=== PATIENT | female | born 1980 | race Two or more races ===

== ENCOUNTER → 2019-08-23 | Outpatient (CLI) | payer OTHER | END | disposition home or self-care (01) | LOC: PRENATAL 11:00 | DX: O99.89 Other specified diseases and conditions complicating pregnancy, childbirth and the puerperium (principal); O09.522 Supervision of elderly multigravida, second trimester; O34.32 Maternal care for cervical incompetence, second trimester; O26.842 Uterine size-date discrepancy, second trimester; O09.92 Supervision of high risk pregnancy, unspecified, second trimester; O09.212 Supervision of pregnancy with history of pre-term labor, second trimester ==

== ENCOUNTER → 2019-10-02 | Outpatient (CLI) | payer OTHER | END | disposition home or self-care (01) | LOC: PRENATAL 09-18 10:00 | DX: O26.842 Uterine size-date discrepancy, second trimester (principal); O09.522 Supervision of elderly multigravida, second trimester; O34.32 Maternal care for cervical incompetence, second trimester; O99.89 Other specified diseases and conditions complicating pregnancy, childbirth and the puerperium; O34.12 Maternal care for benign tumor of corpus uteri, second trimester; O99.212 Obesity complicating pregnancy, second trimester; O35.3XX1 Maternal care for (suspected) damage to fetus from viral disease in mother, fetus 1; O09.212 Supervision of pregnancy with history of pre-term labor, second trimester; O26.852 Spotting complicating pregnancy, second trimester ==

== ENCOUNTER → 2019-11-20 | Outpatient (CLI) | payer OTHER | END | disposition home or self-care (01) | LOC: PRENATAL 10:59 | PROVIDERS: ATTEND Obstetrics & Gynecology Maternal & Fetal Medicine | DX: O26.843 Uterine size-date discrepancy, third trimester (principal); O09.523 Supervision of elderly multigravida, third trimester; O09.213 Supervision of pregnancy with history of pre-term labor, third trimester; O99.89 Other specified diseases and conditions complicating pregnancy, childbirth and the puerperium; O34.13 Maternal care for benign tumor of corpus uteri, third trimester; O99.213 Obesity complicating pregnancy, third trimester; Z36.89 Encounter for other specified antenatal screening ==

== ENCOUNTER → 2020-01-02 | Outpatient (CLI) | payer OTHER | END | disposition home or self-care (01) | LOC: PRENATAL 11:15 | PROVIDERS: ATTEND Obstetrics & Gynecology Maternal & Fetal Medicine | DX: O26.843 Uterine size-date discrepancy, third trimester (principal); O09.513 Supervision of elderly primigravida, third trimester; O99.89 Other specified diseases and conditions complicating pregnancy, childbirth and the puerperium; O99.213 Obesity complicating pregnancy, third trimester; O34.13 Maternal care for benign tumor of corpus uteri, third trimester; Z36.89 Encounter for other specified antenatal screening ==